=== PATIENT | male | born 1945 | race Caucasian/White ===

== ENCOUNTER 2016-09-18 07:15 | Inpatient (IN) | payer MEDICARE, BC ==
[2016-09-18] VITALS (8 sets, daily range): BP systolic 157–173; BP diastolic 85–98; PULSE 46–64; RESP 16–18; TEMP 97.6–98.2; O2SAT 98–99
[~2016-09-18] VITALS: Ht 180.3 cm; Wt 110.0 kg
[2016-09-18] MEDS ORDERED: OMEP20TA PO (07:44)
[2016-09-18] MEDS ORDERED: AVOD0.5C PO (07:44)
[2016-09-18] MEDS ORDERED: FELO10TA PO (07:44)
[2016-09-18] MEDS ORDERED: LUTE6CAP2 PO (07:44)
[2016-09-18] MEDS ORDERED: ATEN50TA PO (07:44)
[2016-09-18] MEDS ORDERED: ROSU20 PO (07:44)
[2016-09-18] MEDS ORDERED: UROX10TA3 PO (07:44)
[2016-09-18] MEDS ORDERED: LISI10TA PO (07:44)
[2016-09-18] MEDS ORDERED: ASPI81CH CHEW (07:44)
[2016-09-18] MEDS ORDERED: PLAV75TA29 PO (07:44)
[2016-09-18 07:57] LABS: AUTOMATED NEUTROPHIL # 4.4 TH/MM3 (1.8-7.7); BASOPHIL # 0.1 TH/MM3 (0-0.2); BASOPHIL % 0.8 % (0.0-2.0); EOSINOPHIL # 0.4 TH/MM3 (0-0.4); EOSINOPHIL % 5.9 % (0.0-4.0); HEMO FLAGS DIFF FINAL; LYMPH % 19.8 % (9.0-44.0); LYMPHOCYTE # 1.3 TH/MM3 (1.0-4.8); MEAN CELL VOLUME 85.5 FL (80.0-100.0); MEAN CORPUSCULAR HEMOGLOBIN 28.6 PG (27.0-34.0); MEAN CORPUSCULAR HGB CONC 33.5 % (32.0-36.0); MONO % 8.4 % (0.0-8.0); NEUT % 65.1 % (16.0-70.0); PLATELET COUNT 223 TH/MM3 (150-450); RED CELL DISTRIBUTION WIDTH 15.2 % (11.6-17.2); WHITE BLOOD COUNT 6.8 TH/MM3 (4.0-11.0)
[2016-09-18] MEDS ORDERED: ASPIRIN 81 MG CHEW TAB PO ONE (08:00)
[2016-09-18 08:07] LABS: APTT (PATIENT) 26.3 SEC (24.3-30.1); PROTHROMBIN TIME - PATIENT 11.6 SEC (9.8-11.6)
[2016-09-18 08:21] LABS: POTASSIUM 3.7 MEQ/L (3.5-5.1)
[2016-09-18] MEDS ORDERED: IOHEXOL 350 MG/ML 100 ML BTL (for Cath Lab) OTHER ONE (10:00)
[2016-09-18] MEDS ORDERED: HEPARIN-NS/PF INJ 500 ML ONE (10:05)
--- NOTE | 2016-09-18 10:13 | EKG ---
Date Performed: 09/18/2016 Time Performed: 08:08:02 PTAGE: 71 years EKG: BASELINE ARTIFACT PRESENT. Sinus bradycardia. Right bundle branch block Possible LVH with s econdary repolarization abnormality Nonspecific ST-T wave changes Abnormal ECG NO PREVIOUS TRACING DOCTOR: Hernandez Vitale Interpretating Date/Time 09/18/2016 10:12:56
[2016-09-18] MEDS ORDERED: HEPARIN SODIUM - IV 10,000 UNITS/10 ML VIAL ONE (10:47)
[2016-09-18] MEDS ORDERED: SODIUM CHLORIDE 0.9% FLUSH 10 ML FLUSH PRN (11:15)
[2016-09-18] MEDS ORDERED: BACITRACIN OINT 0.9 GM PKT TOP ONE (11:15)
[2016-09-18] MEDS ORDERED: MISC INFORMATION XX ONE (11:15)
[2016-09-18] MEDS ORDERED: METOPROLOL TARTRATE 25 MG TAB PO SCH (16:30)
[2016-09-18] MEDS ORDERED: ceFAZolin 2 GM PREMIX 50 ML IV SCH (16:30)
[2016-09-18] MEDS ORDERED: SODIUM CHLORIDE 0.9% FLUSH 10 ML FLUSH IV FLUSH PRN (16:30)
[2016-09-18] MEDS ORDERED: POTASSIUM CHLORIDE 20 MEQ CONTROLLED RELEASE TAB PO ONE (16:30)
[2016-09-18] MEDS ORDERED: CEFAZOLIN INJ 500 MG in SODIUM CHLORIDE 0.9% IRR BTL 500 ML IRRIGATION SCH (16:30)
[2016-09-18] MEDS ORDERED: CHLORHEXIDINE GLUCONATE 4% SOLN 120 ML BTL TOPICAL SCH (16:30)
[2016-09-18] MEDS ORDERED: PAPAVERINE INJ 60 MG, NITROGLYCERIN INJ 100 MCG, DILTIAZEM INJ 100 MG in SODIUM CHLORID... IRRIGATION SCH (16:30)
[2016-09-18] MEDS ORDERED: INSULIN REGULAR (IV INFUSION) 100 UNITS in SODIUM CHLORIDE 0.9% INJ 100 ML IV SCH (16:30)
--- NOTE | 2016-09-18 16:36 | PD.CAR.PN ---
CVT Progress Note Subjective/Hospital Course: sts data discussed with pt RISK SCORES About the STS Risk Calculator Procedure: CAB Only Risk of Mortality: 1.234% Morbidity or Mortality: 13.467% Long Length of Stay: 5.003% Short Length of Stay: 44.36% Permanent Stroke: 0.965% Prolonged Ventilation: 8.508% DSW Infection: 0.642% Renal Failure: 5.088% Reoperation: 4.494% Objective: Vital Signs Date Time Temp Pulse Resp B/P Pulse Ox O2 Delivery O2 Flow Rate FiO2 09/18/16 15:30 98.2 53 18 165/85 98 09/18/16 11:41 100 Room Air 09/18/16 07:39 97.9 58 18 161/92 98 Labs: Laboratory Tests Test 09/18/16 07:30 White Blood Count 6.8 TH/MM3 (4.0-11.0) Red Blood Count 4.10 MIL/MM3 (4.50-5.90) Hemoglobin 11.7 GM/DL (13.0-17.0) Hematocrit 35.0 % (39.0-51.0) Mean Corpuscular Volume 85.5 FL (80.0-100.0) Mean Corpuscular Hemoglobin 28.6 PG (27.0-34.0) Mean Corpuscular Hemoglobin 33.5 % Concent (32.0-36.0) Red Cell Distribution Width 15.2 % (11.6-17.2) Platelet Count 223 TH/MM3 (150-450) Mean Platelet Volume 9.1 FL (7.0-11.0) Neutrophils (%) (Auto) 65.1 % (16.0-70.0) Lymphocytes (%) (Auto) 19.8 % (9.0-44.0) Monocytes (%) (Auto) 8.4 % (0.0-8.0) Eosinophils (%) (Auto) 5.9 % (0.0-4.0) Basophils (%) (Auto) 0.8 % (0.0-2.0) Neutrophils # (Auto) 4.4 TH/MM3 (1.8-7.7) Lymphocytes # (Auto) 1.3 TH/MM3 (1.0-4.8) Monocytes # (Auto) 0.6 TH/MM3 (0-0.9) Eosinophils # (Auto) 0.4 TH/MM3 (0-0.4) Basophils # (Auto) 0.1 TH/MM3 (0-0.2) CBC Comment DIFF FINAL Differential Comment Prothrombin Time 11.6 SEC (9.8-11.6) Prothromb Time International 1.0 RATIO Ratio Activated Partial 26.3 SEC Thromboplast Time (24.3-30.1) Sodium Level 143 MEQ/L (136-145) Potassium Level 3.7 MEQ/L (3.5-5.1) Chloride Level 107 MEQ/L (98-107) Carbon Dioxide Level 28.0 MEQ/L (21.0-32.0) Anion Gap 8 MEQ/L (5-15) Blood Urea Nitrogen 18 MG/DL (7-18) Creatinine 1.25 MG/DL (0.60-1.30) Estimat Glomerular Filtration 57 ML/MIN (>89) Rate Random Glucose 111 MG/DL (74-106) Calcium Level 9.4 MG/DL (8.5-10.1) Result Diagram: 09/18/16 0730 09/18/16 0730 Jailene Urena Sep 18, 2016 16:36
--- NOTE | 2016-09-18 17:08 | RADRPT ---
EXAM DATE/TIME: 09/18/2016 16:57 [facility] COMPARISON: No previous studies available for comparison. INDICATIONS : Evaluate for pneumonia, pneumothorax or communicable disease. Pre-op, CABG. MEDICAL HISTORY : None. SURGICAL HISTORY : None. ENCOUNTER: Initial ACUITY: 1 day PAIN SCORE: 0/10 LOCATION: Bilateral chest FINDINGS: The cardiac silhouette is enlarged in transverse diameter. The lungs are free of acute parenchymal op acity. No effusions are identified. There is prominence of the aortic knob is with calcification vishnu acteristic of atherosclerotic vascular disease. There is mild multilevel degenerative change through out the spine. CONCLUSION: 1. Cardiomegaly. No acute pulmonary disease. Shorty Gillespie MD on September 18, 2016 at 17:06 Board Certified Radiologist. This report was verified electronically.
--- NOTE | 2016-09-18 20:02 | RADRPT ---
EXAM DATE/TIME: 09/18/2016 18:51 [facility] COMPARISON: No previous studies available for comparison. INDICATIONS : Preop cardiac surgery. MEDICAL HISTORY : Hypertension. Cardiac disorders. Anticoagulant therapy, Plavix. SURGICAL HISTORY : Cardiac cath. ENCOUNTER: Initial ACUITY: 1 day PAIN SCORE: 0/10 LOCATION: Bilateral neck PEAK SYSTOLIC VELOCITIES (cm/sec): ICA/CCA RATIO: Right: 1.7 Left: 4.2 ICA: Right: 108 Left: 200 CCA: Right: 65 Left: 48 ECA: Right: 86 Left: 116 VERTEBRAL: Right: 95 antegrade Left: 92 antegrade Elevated flow velocities and ICA/CCA ratios have been found to correlate with increased degrees of vessel stenosis, calculated as percentage of diameter relative to a normal segment of distal ICA/CCA FINDINGS: RIGHT CAROTID: There is mild plaque at the right carotid bulb region. No significant stenosis is visualized. The wa veforms are within normal limits. LEFT CAROTID: There is a least moderate plaque at the left carotid bulb region with elevated peak systolic velocity in the left internal carotid artery and a significantly elevated ICA to CCA ratio. VERTEBRAL ARTERIES: Antegrade flow is seen in both vertebral arteries. MISCELLANEOUS: None. CONCLUSION: Suspected at least moderate stenosis at the left internal carotid artery. Mark Quinn MD on September 18, 2016 at 19:59 Board Certified Radiologist. This report was verified electronically.
--- NOTE | 2016-09-18 20:03 | RADRPT ---
EXAM DATE/TIME: 09/18/2016 19:08 [facility] COMPARISON: No previous studies available for comparison. INDICATIONS : Preop cardiac surgery. MEDICAL HISTORY : Hypertension. Cardiac disorders. Anticoagulant therapy, Plavix. SURGICAL HISTORY : Cardiac cath. ENCOUNTER: Initial ACUITY: 1 day PAIN SCORE: 0/10 LOCATION: Bilateral leg. TECHNIQUE: Venous ultrasound of the left and right leg was performed from the inguinal ligament to the proximal calf. Real-time, color Doppler and spectral tracing, compression and augmentation techniques were us ed. FINDINGS: RIGHT LEG: There is normal compressibility of the deep venous system from the inguinal region to the proximal ca lf. No echogenic clot is seen in the lumen of the common femoral, femoral, popliteal, and posterior tibial veins. There is a normal response of the venous system to proximal and distal augmentation an d respiration. LEFT LEG: There is normal compressibility of the deep venous system from the inguinal region to the proximal ca lf. No echogenic clot is seen in the lumen of the common femoral, femoral, popliteal, and posterior tibial veins. There is a normal response of the venous system to proximal and distal augmentation an d respiration. CONCLUSION: No DVT. Mark Quinn MD on September 18, 2016 at 20:01 Board Certified Radiologist. This report was verified electronically.
--- NOTE | 2016-09-18 20:04 | RADRPT ---
EXAM DATE/TIME: 09/18/2016 19:16 [facility] COMPARISON: No previous studies available for comparison. INDICATIONS : Preop cardiac surgery. MEDICAL HISTORY : Hypertension. Cardiac disorders. Anticoagulant therapy, Plavix. SURGICAL HISTORY : Cardiac cath. ENCOUNTER: Initial ACUITY: 1 day PAIN SCORE: 0/10 LOCATION: Bilateral leg. GREATER SAPHENOUS VEIN THIGH: PROXIMAL: Right 3 mm Left 5 mm MID: Right 3 mm Left 3 mm DISTAL: Right 4 mm Left 2 mm CALF: PROXIMAL: Right 1 mm Left 2 mm MID: Right 1 mm Left 1 mm DISTAL: Right 1 mm Left 1 mm FINDINGS: The venous system of the lower extremities are patent by color Doppler imaging. Measurements of the leg veins (in mm) are listed above. CONCLUSION: Venous mapping as delineated above. Mark Quinn MD on September 18, 2016 at 20:01 Board Certified Radiologist. This report was verified electronically.
[2016-09-18] MEDS: SODIUM CHLORIDE 0.9% FLUSH 10 ML FLUSH IV FLUSH SCH (21:00)
[2016-09-18] MEDS ORDERED: ATENOLOL 50 MG TAB PO ONE (21:30)
[2016-09-18] MEDS ORDERED: LISINOPRIL 10 MG TAB PO ONE (21:45)
[2016-09-18] MEDS ORDERED: HYDROCHLOROTHIAZIDE 25 MG TAB PO ONE (21:45)
[2016-09-18] MEDS: SODIUM CHLORIDE 0.9% FLUSH 10 ML FLUSH SCH (21:51)
[2016-09-19] VITALS (27 sets, daily range): BP systolic 138–162; BP diastolic 77–90; PULSE 43–62; RESP 16–18; TEMP 97.6–98; O2SAT 95–99
[2016-09-19 07:18] LABS: P2Y12 REACTION UNITS (PRU) 278 PRU (194-418)
[2016-09-19] MEDS: PROSCAR PO SCH (08:18)
[2016-09-19] MEDS: TAMSULOSIN HCL 0.4 MG CAP PO SCH (08:18)
[2016-09-19] MEDS: ATORVASTATIN 40 MG TAB PO SCH (08:18)
[2016-09-19] MEDS: ATENOLOL 50 MG TAB PO SCH (08:18)
[2016-09-19] MEDS: SODIUM CHLORIDE 0.9% FLUSH 10 ML FLUSH IV FLUSH SCH (08:19)
[2016-09-19] MEDS: LISINOPRIL 10 MG TAB PO SCH (08:19)
[2016-09-19] MEDS: ASPIRIN 81 MG CHEW TAB PO SCH (08:19)
[2016-09-19] MEDS: SODIUM CHLORIDE 0.9% FLUSH 10 ML FLUSH SCH (08:19)
[2016-09-19] MEDS: HYDROCHLOROTHIAZIDE 25 MG TAB PO SCH (08:19)
--- NOTE | 2016-09-19 15:59 | PD.CARD.PN ---
Subjective Subjective Remarks alert in nad Objective Vital Signs / I&O Vital Signs Date Time Temp Pulse Resp B/P Pulse Ox O2 Delivery O2 Flow Rate FiO2 09/19/16 15:01 50 09/19/16 15:01 98.0 54 16 150/89 95 09/19/16 14:01 50 09/19/16 13:00 50 09/19/16 12:01 52 09/19/16 11:30 98.0 58 16 152/84 96 09/19/16 11:00 48 09/19/16 10:00 48 09/19/16 09:01 56 09/19/16 08:15 98.0 60 18 138/77 98 09/19/16 08:00 54 09/19/16 07:00 48 09/19/16 06:36 50 09/19/16 05:00 46 09/19/16 04:00 43 09/19/16 03:00 56 09/19/16 02:00 50 09/19/16 01:28 97.6 62 16 156/90 99 09/19/16 01:00 50 09/19/16 00:00 50 09/18/16 23:00 50 09/18/16 22:00 64 09/18/16 21:59 62 157/96 09/18/16 21:00 56 09/18/16 20:00 52 09/18/16 20:00 97.6 51 16 173/98 99 09/18/16 19:00 46 I/O 09/18/16 09/18/16 09/18/16 09/19/16 09/19/16 09/19/16 07:00 15:00 23:00 07:00 15:00 23:00 Intake Total 240 ml 480 ml Output Total 0 ml 375 ml Balance 240 ml 105 ml Intake Oral 240 ml 480 ml Output Urine Total 0 ml 375 ml # Voids 0 # Bowel Movements 0 Laboratory GENERAL: SKIN: Warm and dry. HEAD: Normocephalic. EYES: No scleral icterus. No injection or drainage. NECK: Supple, trachea midline. No JVD or lymphadenopathy. CARDIOVASCULAR: Regular rate and rhythm without murmurs, gallops, or rubs. RESPIRATORY: Breath sounds equal bilaterally. No accessory muscle use. GASTROINTESTINAL: Abdomen soft, non-tender, nondistended. MUSCULOSKELETAL: No cyanosis, or edema. BACK: Nontender without obvious deformity. No CVA tenderness. Laboratory Tests Test 09/18/16 09/19/16 09/19/16 20:00 06:08 07:40 Nasal Screen MRSA (PCR) MRSA NOT DETECTED Platelet Function P2Y12 React 278 PRU Units Blood Type O POSITIVE O POSITIVE Antibody Screen NEGATIVE Crossmatch Leukocyte-Reduced Red Blood Cells Blood Bank Comment Assessment and Plan Problem List: (1) CAD (coronary artery disease) (2) Tobacco abuse (3) HTN (hypertension) (4) DM (diabetes mellitus) Assessment and Plan 1.) severe 3 vessel cad/dm - cabg per Dr Castelan 09/21/16 Rubén Galloway MD Sep 19, 2016 15:58
[2016-09-19 18:00] LABS: BLOOD, URINE SMALL (NEG); COMMENT (UR) CULT NOT INDICATED; CULTURE IF INDICATED CULT NOT INDICATED; GLUCOSE,URINE NEG (NEG); KETONE, URINE NEG (NEG); MUCUS URINE FEW /lpf (OCC); NITRITE,URINE NEG (NEG); PH, URINE 5.5 (5.0-8.5); SQUAMOUS EPITHELIAL CELL URINE <1 /hpf (0-5); URINE COLOR YELLOW (YELLW/STRAW)
[2016-09-20] VITALS (25 sets, daily range): BP systolic 143–198; BP diastolic 84–100; PULSE 42–66; RESP 16; TEMP 98–98.8; O2SAT 95–97
[2016-09-20] MEDS: ATENOLOL 50 MG TAB PO SCH (09:00)
[2016-09-20] MEDS: SODIUM CHLORIDE 0.9% FLUSH 10 ML FLUSH IV FLUSH SCH (09:00)
[2016-09-20] MEDS: ATORVASTATIN 40 MG TAB PO SCH (09:11)
[2016-09-20] MEDS: HYDROCHLOROTHIAZIDE 25 MG TAB PO SCH (09:12)
[2016-09-20] MEDS: LISINOPRIL 10 MG TAB PO SCH (09:12)
[2016-09-20] MEDS: ASPIRIN 81 MG CHEW TAB PO SCH (09:12)
[2016-09-20] MEDS: PROSCAR PO SCH (09:12)
[2016-09-20] MEDS: SODIUM CHLORIDE 0.9% FLUSH 10 ML FLUSH SCH (09:13)
[2016-09-20] MEDS: TAMSULOSIN HCL 0.4 MG CAP PO SCH (09:15)
--- NOTE | 2016-09-20 10:33 | PD.CAR.PN ---
CVT Progress Note Subjective/Hospital Course: 09/20 Clinically stable Requesting Off-Pump CABG since his brother was operated by [facility]. Will plan for OPCAB tomorrow am. D/w Dr. Castelan Objective: Vital Signs Date Time Temp Pulse Resp B/P Pulse Ox O2 Delivery O2 Flow Rate FiO2 09/20/16 08:00 98.8 62 16 156/90 95 09/20/16 06:00 49 09/20/16 05:52 98.2 47 16 165/86 97 09/20/16 05:00 47 09/20/16 04:00 44 09/20/16 03:00 44 09/20/16 02:00 44 09/20/16 01:00 48 09/20/16 00:00 98.0 43 16 166/86 97 09/20/16 00:00 42 09/19/16 23:00 46 09/19/16 22:00 46 09/19/16 21:00 46 09/19/16 21:00 98.0 49 16 162/88 98 09/19/16 20:00 48 09/19/16 19:00 45 09/19/16 18:00 45 09/19/16 17:00 46 09/19/16 16:00 44 09/19/16 15:01 50 09/19/16 15:01 98.0 54 16 150/89 95 09/19/16 14:01 50 09/19/16 13:00 50 09/19/16 12:01 52 09/19/16 11:30 98.0 58 16 152/84 96 09/19/16 11:00 48 Result Diagram: 09/18/1672909/18/16729 (1) CAD (coronary artery disease) (2) Tobacco abuse (3) HTN (hypertension) (4) DM (diabetes mellitus) Kaley Loera MD Sep 20, 2016 10:33
[2016-09-20 10:42] LABS: HEMOGLOBIN A1a 1.1 %; HEMOGLOBIN A1b 0.9 %; HEMOGLOBIN Ao 84.8 %; HEMOGLOBIN F 0.9 %; HEMOGLOBIN LA1C 1.6 %; HEMOGLOBIN P3 3.8 %
--- NOTE | 2016-09-20 14:17 | PD.CARD.PN ---
Subjective Subjective Remarks alert in nad Objective Vital Signs / I&O Vital Signs Date Time Temp Pulse Resp B/P Pulse Ox O2 Delivery O2 Flow Rate FiO2 09/20/16 10:00 48 09/20/16 09:00 52 09/20/16 08:00 98.8 62 16 156/90 95 09/20/16 08:00 66 09/20/16 07:00 52 09/20/16 06:00 49 09/20/16 05:52 98.2 47 16 165/86 97 09/20/16 05:00 47 09/20/16 04:00 44 09/20/16 03:00 44 09/20/16 02:00 44 09/20/16 01:00 48 09/20/16 00:00 98.0 43 16 166/86 97 09/20/16 00:00 42 09/19/16 23:00 46 09/19/16 22:00 46 09/19/16 21:00 46 09/19/16 21:00 98.0 49 16 162/88 98 09/19/16 20:00 48 09/19/16 19:00 45 09/19/16 18:00 45 09/19/16 17:00 46 09/19/16 16:00 44 09/19/16 15:01 50 09/19/16 15:01 98.0 54 16 150/89 95 I/O 09/19/16 09/19/16 09/19/16 09/20/16 09/20/16 09/20/16 07:00 15:00 23:00 07:00 15:00 23:00 Intake Total 480 ml 720 ml 620 ml Output Total 375 ml 800 ml 680 ml Balance 105 ml -80 ml -60 ml Intake Oral 480 ml 720 ml 620 ml Output Urine Total 375 ml 800 ml 680 ml Physical Exam GENERAL: SKIN: Warm and dry. HEAD: Normocephalic. EYES: No scleral icterus. No injection or drainage. NECK: Supple, trachea midline. No JVD or lymphadenopathy. CARDIOVASCULAR: Regular rate and rhythm without murmurs, gallops, or rubs. RESPIRATORY: Breath sounds equal bilaterally. No accessory muscle use. GASTROINTESTINAL: Abdomen soft, non-tender, nondistended. MUSCULOSKELETAL: No cyanosis, or edema. BACK: Nontender without obvious deformity. No CVA tenderness. Laboratory Laboratory Tests Test 09/19/16 17:00 Urine Color YELLOW Urine Turbidity CLEAR Urine pH 5.5 Urine Specific Addis 1.024 Urine Protein NEG mg/dL Urine Glucose (UA) NEG mg/dL Urine Ketones NEG mg/dL Urine Occult Blood SMALL Urine Nitrite NEG Urine Bilirubin NEG Urine Urobilinogen LESS THAN 2.0 MG/DL Urine Leukocyte Esterase NEG Urine RBC 5 /hpf Urine WBC 1 /hpf Urine Squamous Epithelial <1 /hpf Cells Urine Mucus FEW /lpf Microscopic Urinalysis Comment CULT NOT INDICATED Assessment and Plan Problem List: (1) CAD (coronary artery disease) (2) Tobacco abuse (3) HTN (hypertension) (4) DM (diabetes mellitus) Assessment and Plan 1.) severe 3 vessel cad/dm - cabg per Dr Loera 09/21/16 Rubén Galloway MD Sep 20, 2016 14:17
--- NOTE | 2016-09-20 18:53 | MR ---
cc: AMBAR LE M.D. DATE: 09/18/2016. PROCEDURES PERFORMED: Right heart catheterization, left heart catheterization, left ventriculography, coronary angiography. INDICATIONS FOR THE PROCEDURE: Coronary artery disease, diabetes mellitus, hypertension, hyperlipidemia, moderate sized in the posterior wall, inferior wall moderate sized reversal defect, posterior/inferior wall and apex. Ejection fraction of 65%. Congestive heart failure. Dyspnea on exertion. Diabetes mellitus. Moderate to severe three-vessel disease in the past. DESCRIPTION OF THE PROCEDURE IN DETAIL: The patient was brought to the cardiac catheterization laboratory and prepped and draped in the usual sterile fashion. 10 cc of 1% lidocaine was used to locally anesthetize the right common femoral artery. A 4-Yoruba sheath was subsequently placed in the right common femoral artery. A 5-Yoruba sheath was placed in the right common femoral vein. Right heart catheterization was performed first. I was not able to wedge the balloon to the wedge position; therefore, PA pressure was obtained first. The PA pressure was 32/15/24. RV pressure was 38/13/18. RA pressure was 14/11/10. The SA saturation on room air was 98.2%. The PA saturation on room air was 66.9%. RA saturation on room air was 72.2%. Cardiac output by Marylou is 6.0 liters per minute. Cardiac index by Marylou is 2.7 liters per minute per meter squared. Left heart catheterization was then performed. I needed to use the 4-Yoruba JR-4 diagnostic catheter and the 0.33 wire to steer past the right common iliac artery and into the aorta due to vessel tortuosity. Thereafter all catheter exchanges were done over a long 0.035 J-tip wire. I was not able to cross the aortic valve with an 0.035 J-tip wire. The valve appeared to be calcified fluoroscopically. I imaged the right coronary artery first. This was a small nondominant vessel that was subtotally occluded in the mid segment with bridging collaterals to a small 0.5 mm vessel distal to the mid segment. The proximal segment had a long 70% stenosis. I was able to cross the aortic valve with an 0.03 Terumo straight tipped wire and placed a JR-4 diagnostic catheter into the left ventricle. LV pressures were 210 / 19 - 22, ejection fraction 65%. The pullback gradient was approximately 10 mmHg, going from 195 to 190, so approximately 5 mm. The left main coronary artery is calcified fluoroscopically and has no significant disease angiographically. The left circumflex vessel has a subtotal occlusion proximally. It does appear to be RADHA III flow into the remainder of that left circumflex vessel. It is a very tortuous vessel. The first obtuse marginal vessel is small to medium-sized vessel with perhaps a proximal 70% stenosis. It is difficult to image this vessel. The patient is obese and I could only really image it in the caudal view. This vessel does bifurcate and I would estimate it at a 2.5 mm vessel proximally tapering to a 2.0 mm vessel distally. The left anterior descending fibrocalcific fluoroscopically. It is tortuous in proximal segment with a long 80% stenosis that I can best appreciate in the ALDRICH cranial view. There are two small 0.5 mm diagonal vessels coming off this segment of the LAD. The third diagonal vessel is a small vessel, probably 1.0 to 1.5 mm in diameter with an ostial 50% stenosis. CONCLUSIONS: 1. Severe three-vessel coronary artery disease in a right dominant system. 2. Questionable diabetes. The patient claims he does not have diabetes but he takes metformin. 3. He has normal left ventricular systolic function with ejection fraction of 65%. 4. I have recommended CABG to the patient. The patient is undecided. I have explained to him that percutaneous coronary intervention would be high risk due to the location of the left circumflex vessel stenosis; however, it does appear to be a 90-degree angle off the left main, which would suggest the possibility of having the stent not protruding into the left main or ostial left anterior descending. Again, a high risk lesion to intervene on. Again, the patient is undecided. He requests to go back to his room and think about his options. 5. I am going to get a consult with Dr. Jennifer Castelan. I have already discussed the case with him on the phone. 6. Otherwise, he will continue medical management of coronary artery disease and cardiac risk factor modification. 7. I do not think the patient should be discharged given the high-grade lesions and high-risk nature and the amount of jeopardized myocardium involved, prior to revascularization. MD RACIEL Oquendo/TAMAR /11:10 AM /6:38 PM
--- NOTE | 2016-09-20 22:43 | EKG ---
Date Performed: 09/19/2016 Time Performed: 17:15:46 PTAGE: 71 years EKG: Sinus bradycardia and junctional rhythm Right bundle branch block Inferior infarct - age un determined LVH with secondary repolarization abnormality Diffuse ST-T changes Abnormal ECGPREVIOUS TR ACING : 09/18/2016 08.08 Compared to the previous tracing ST-T changes more prominent DOCTOR: Madi Kenny Interpretating Date/Time 09/20/2016 22:42:36
[2016-09-20] MEDS ORDERED: NITROGLYCERIN-DEXTROSE 5% 250 ML for hypertension IV SCH (23:45)
[2016-09-20] MEDS ORDERED: ALPRAZolam 0.25 MG TAB PO PRN (23:45)
[2016-09-21] VITALS (15 sets, daily range): BP systolic 99–138; BP diastolic 59–81; PULSE 47–92; RESP 16–20; TEMP 97.8–98.2; O2SAT 93–99
[2016-09-21] MEDS ORDERED: SODIUM CHLORID 0.9% 500 ML IV PRN (01:00)
[2016-09-21] MEDS ORDERED: LACTATED RINGER'S 1000 ML IV PRN (01:00)
[2016-09-21] MEDS ORDERED: POVIDONE IODINE 5% (ANTISEPSIS KIT) 4 APPLICATIONS EACH NARE PRN (01:00)
[2016-09-21] MEDS ORDERED: CHLORHEXIDINE GLUCONATE 2 % 1 PACK (2 CLOTHS) TOPICAL PRN (01:00)
[2016-09-21] MEDS ORDERED: INSULIN HUMAN REGULAR 1,000 UNITS/10 ML VIAL SQ PRN (01:00)
[2016-09-21] MEDS ORDERED: METOPROLOL TARTRATE 5 MG/5 ML VIAL IV PUSH ONE (05:00)
[2016-09-21] MEDS ORDERED: LIDOCAINE HCL 2% 100 MG/5 ML SYRINGE IV PUSH ONE (05:00)
[2016-09-21] MEDS ORDERED: PROPOFOL 1000 MG/100 ML INJ 100 ML IV ONE (05:00)
[2016-09-21] MEDS ORDERED: VECURONIUM BROMIDE 10 MG VIAL IV ONE (05:00)
[2016-09-21] MEDS ORDERED: ceFAZolin INJ 1,000 MG VIAL IV ONE ×2 (05:00→12:08)
[2016-09-21] MEDS ORDERED: ARTIFICIAL TEARS OPTH OINT 3.5 APPLIC/3.5 GM TUBO ONE (05:00)
[2016-09-21] MEDS ORDERED: ceFAZolin 2 GM PREMIX 50 ML IV ONE (05:00)
[2016-09-21] MEDS ORDERED: MAGNESIUM SULFATE 1000 MG/2 ML VIAL (PED) IV ONE (05:00)
[2016-09-21] MEDS ORDERED: PHENYLEPHRINE HCL 10 MG/ML VIAL IV ONE (05:00)
[2016-09-21] MEDS ORDERED: HEPARIN SODIUM - SQ 10,000 UNITS/ML VIAL ONE (06:51)
[2016-09-21] MEDS ORDERED: ceFAZolin 2 GM PREMIX 50 ML ONE (06:51)
[2016-09-21] MEDS ORDERED: VANCOMYCIN HCL 1000 MG VIAL ONE (06:51)
[2016-09-21] MEDS ORDERED: fentaNYL CITRATE 1000 MCG/20 ML VIAL ONE (06:55)
[2016-09-21] MEDS ORDERED: MIDAZOLAM HCL 5 MG/5 ML VIAL ONE ×2 (06:55)
[2016-09-21] MEDS: PROSCAR PO SCH (09:00)
[2016-09-21] MEDS: ATORVASTATIN 40 MG TAB PO SCH (09:00)
[2016-09-21] MEDS: HYDROCHLOROTHIAZIDE 25 MG TAB PO SCH (09:00)
[2016-09-21] MEDS: ATENOLOL 50 MG TAB PO SCH (09:00)
[2016-09-21] MEDS: TAMSULOSIN HCL 0.4 MG CAP PO SCH (09:00)
[2016-09-21] MEDS: LISINOPRIL 10 MG TAB PO SCH (09:00)
[2016-09-21] MEDS ORDERED: PROTAMINE SULFATE 250 MG/25 ML VIAL IV ONE (09:04)
--- NOTE | 2016-09-21 09:05 | MB ---
cc: JENNIFER CASTELAN DATE OF CONSULTATION 09/18/16 DATE OF 1945 HISTORY OF PRESENT ILLNESS A 71-year-old male who has been followed by Dr. Galloway for unstable angina. He had a positive stress test a couple of weeks ago, underwent cardiac catheterization which showed no left main disease, EF of 60%, proximal LAD 80%, mid distal LAD 80%. The circ was 95%. The OM 80% and the RCA 95%. We were asked to see the patient in regards to cardiovascular surgery. PAST MEDICAL HISTORY The patient's past medical history includes coronary artery disease, non-rheumatic mitral valve insufficiency, non-rheumatic aortic valve insufficiency. Tobacco abuse. He quit 1 month ago. Diabetes mellitus type 2. Essential hypertension, mixed hyperlipidemia, peripheral vascular disease, CHF, dyspnea, unstable angina. ALLERGIES No known allergies. MEDICATIONS Home medications include: 1. Aspirin 81 milligrams. 2. Atenolol 50 milligrams. 3. Avodart 0.5 daily. 4. Crestor 20 p.o. daily. 5. Felodipine 10 milligrams daily. 6. Lisinopril/hydrochlorothiazide 10/12.5 p.o. daily. 7. Lutin. 8. Omeprazole 40 milligrams. 9. Plavix 75 milligrams. 10. Uroxatral 10 milligrams p.o. daily. FAMILY HISTORY Father at age 53 with an TX. Mother complications of CHF at 83. SOCIAL HISTORY The patient , two children. Retired teacher. Lives with his significant other. Quit smoking a month ago, has smoked for 30-40 years, one pack per day. Occasional alcohol. REVIEW OF SYSTEMS GENERAL: In general no night sweats, fever, heat, cold intolerance. SKIN: No psoriasis, itching or hives. HEENT: No blurred vision, hearing loss. RESPIRATORY: Occasional shortness of breath. CARDIOVASCULAR: As above in the HPI. GASTROINTESTINAL: No diarrhea, vomiting. GENITOURINARY: No burning frequency, urgency. STAIN REMOVER: No history of TIA, CVA, seizure disorder. ENDOCRINOLOGY: Positive for diabetes. PHYSICAL EXAMINATION VITAL SIGNS: On exam blood pressure 160/80, heart rate of 53, afebrile. GENERAL: Patient is awake, alert in no acute distress. HEENT: Head is normocephalic, atraumatic. Pupils equal and reactive. Oral mucosa pink, moist. NECK: Supple. No JVD. Heart sounds S1-S2 with a grade 2/6 diastolic murmur best noted at the left sternal border. LUNGS: Clear to auscultation. No wheezes, rales or rhonchi. ABDOMEN: Soft, nontender. No masses or organomegaly. EXTREMITIES: No cyanosis, clubbing or edema. LABORATORY FINDINGS Shows hemoglobin 11, hematocrit 35, white cell count of 6.8, platelet count of 223, sodium 143, potassium 3.7, BUN of 18, creatinine 1.25, INR 1.0. Further workup is pending including carotid ultrasound, chest x-ray, vein mapping. IMPRESSION This is a 71-year-old male with multivessel disease, EF of 60%. The cardiac films have been reviewed by Dr. Jennifer Castelan. Procedures, alternatives and risks have been discussed with the patient. PLAN The plan will be for coronary artery bypass grafting on WednesdaySeptember 21. In the meantime, we will check platelet inhibition testing on Wednesday morning and if less than 200 this will be notified to Dr. Jennifer Castelan and may need to hold an additional day. In the meantime, the patient's ___ status will be discussed with the patient, documented in the electronic record and further plan per Dr. Castelan. Dictated by KIM Lobo MD ROGER Stephens/CARI /4:47 PM /9:03 AM
[2016-09-21] MEDS: DOBUTamine PREMIX DRIP 250 ML IV SCH (12:12)
[2016-09-21] MEDS ORDERED: LACTATED RINGER'S 1000 ML INJ 500 ML IV PRN (12:12)
[2016-09-21] MEDS ORDERED: ONDANSETRON HCL 4 MG/2 ML VIAL IV PUSH PRN (12:15)
[2016-09-21] MEDS ORDERED: METOPROLOL TARTRATE 5 MG/5 ML VIAL IV PUSH PRN (12:15)
[2016-09-21] MEDS ORDERED: PHENYLEPHRINE INJ 40 MG in DEXTROSE 5% IN WATE 500 ML INJ 496 ML IV SCH ×2 (12:15)
[2016-09-21] MEDS ORDERED: CLEVIDIPINE INJ 50 ML IV SCH (12:15)
[2016-09-21] MEDS ORDERED: NITROGLYCERIN-DEXTROSE INJ 250 ML IV SCH (12:15)
[2016-09-21] MEDS ORDERED: DEXMEDETOMIDINE INJ 200 MCG in SODIUM CHLORIDE 0.9% INJ 50 ML IV SCH (12:15)
[2016-09-21] MEDS ORDERED: POTASSIUM CHLOR 20 MEQ PREMIX 100 ML IV PRN ×2 (12:15)
[2016-09-21] MEDS ORDERED: SODIUM CHLORIDE 0.9% FLUSH 10 ML FLUSH IV FLUSH PRN (12:15)
[2016-09-21] MEDS ORDERED: Post-op Orders (for Pharmacy) MISC OTHER ONE (12:15)
[2016-09-21] MEDS ORDERED: ALBUMIN HUMAN 5% 12.5 GM/250 ML BOTTLE IV PRN (12:15)
[2016-09-21] MEDS ORDERED: ACETAMINOPHEN 325 MG TAB PO PRN (12:15)
[2016-09-21] MEDS ORDERED: CALCIUM CHLORIDE 10% 1 GRAM/10 ML VIAL IV PRN (12:15)
[2016-09-21] MEDS ORDERED: CALCIUM CHLORIDE INJ 1 GM in SODIUM CHLORIDE 0.9% INJ 100 ML IV PRN (12:15)
[2016-09-21] MEDS ORDERED: hydrALAZINE HCL 20 MG/ML VIAL IV PRN (12:15)
[2016-09-21] MEDS ORDERED: DEXTROSE 50% IN WATER 50 ML VIAL(D50) IV PUSH PRN (12:15)
[2016-09-21] MEDS ORDERED: MORPHINE SULFATE 4 MG/ML INJ IV PRN (12:15)
[2016-09-21] MEDS ORDERED: MAGNESIUM SULFATE INJ 2 GM in SODIUM CHLORIDE 0.9% INJ 100 ML IV PRN ×4 (12:15)
[2016-09-21] MEDS ORDERED: DOPamine INJ PREMIX 500 ML IV SCH (12:15)
[2016-09-21] MEDS ORDERED: EPINEPHrine (1:1000) INJ 4 MG in DEXTROSE 5% IN WATER INJ 246 ML IV SCH ×2 (12:15)
[2016-09-21] MEDS ORDERED: MEPERIDINE HCL 25 MG/ML VIAL IV PRN (12:15)
[2016-09-21] MEDS ORDERED: POTASSIUM CHLORIDE 20 MEQ CONTROLLED RELEASE TAB PO PRN ×2 (12:15)
[2016-09-21] MEDS ORDERED: ACETAMINOPHEN 650 MG SUPP RECTAL PRN (12:15)
--- NOTE | 2016-09-21 12:20 | PD.OP ---
cc: Rubén Galloway MD; Kaley Loera MD Operative Report Date of Surgery: September 21, 2016 Preoperative Diagnosis: Postoperative Diagnosis: Procedure: 1. Urgent Off-pump Coronary Artery Bypass Grafting x 4 with left internal mammary artery (ACOSTA) to left anterior descending (LAD), reverse saphenous vein graft to the OM1, reverse saphenous vein graft to the RCA, reverse saphenous vein graft to the Diagonal 1 2.Right Leg Endoscopic Vein [place] 3. Intraoperative Vein Mapping. . Surgeon: Kaley Loera Air And Water Tester(s): Shelby Flores Operation and Findings: PREPROCEDURE DIAGNOSES 1. Severe Multi Vessel Coronary Artery Disease. 2. Acute Myocardial Infarction 3. Acute Renal Insufficiency POSTPROCEDURE DIAGNOSES Same SURGICAL PROCEDURE 1. Urgent Off-pump Coronary Artery Bypass Grafting x 4 with left internal mammary artery (ACOSTA) to left anterior descending (LAD), reverse saphenous vein graft to the OM1, reverse saphenous vein graft to the RCA, reverse saphenous vein graft to the Diagonal 1 2.Right Leg Endoscopic Vein [place] 3. Intraoperative Vein Mapping. SURGEON Kaley Loera MD SALES AND LEASING CONSULTANT DIPTI Martel ANESTHESIA General endotracheal CREDIT UNION FIELD EXAMINER Torres Chisholm, ZULLY Borden MD PREPARATION ChloraPrep. COUNTS Needle, sponge, and instrument counts were correct. DRAINS Two 32-Macedonian mediastinal tubes. COMPLICATIONS None. INDICATIONS FOR PROCEDURE The patient is a 71-year-old presenting with chest pain and NSTEMI. Patient was noted to have multi-vessel coronary artery disease. The patient is being brought to the operating room for surgical revascularization therapy. PROCEDURE Patient was brought to the operating room and placed supine on the OR table. Following the induction of adequate general endotracheal anesthesia and placement of appropriate monitoring devices, intraoperative vein mapping was performed which revealed suitable-caliber conduit in bilateral lower extremities. The patient was then prepped and draped in standard sterile fashion. Next, 2500 units of intravenous heparin was given. The right greater saphenous vein was harvested endoscopically. This appeared to be a useable- caliber conduit. Simultaneously, a median sternotomy was performed and the left internal mammary artery dissected free off the posterior sternal table. The patient was systemically heparinized and anticoagulation monitored by serial ACT measurements. The internal mammary artery had excellent pulsatile flow in it and was a good-caliber conduit. The pericardium was then divided in the midline, the cradle created and targets analyzed. At this point, all anastomoses were performed in a beating-heart fashion using the Maquet stabilizing system with intracoronary shunts. The left internal mammary artery was anastomosed to the distal LAD (2.0 mm) in an end-to-side fashion using 7-0 Prolene. Segment of saphenous vein graft was then anastomosed to the OM1 (1.75 mm) in an end-to-side fashion using 7-0 Prolene. The next segment was anastomosed to the D1 (1.5 mm) in an end-to-side fashion using a running 7-0 Prolene. The final segment of saphenous vein graft was then anastomosed to the RCA (1 mm) in an end-to-side fashion using 7-0 Prolene. The proximal anastomoses were then constructed to the ascending aorta in a running manner using 6-0 Prolene. All anastomotic sites were inspected and appeared to be hemostatic and patent. Protamine solution was given. Strict hemostasis was assured. The closure was undertaken. 2 chest tubes were placed. The pericardium was reapproximated in the midline. The sternum was approximated using sternal wires. The muscular and fascial layer were then closed in 3 layers. The endoscopic vein harvest site was closed in 2 layers. The patient tolerated the procedure well and was transferred to CVICU in stable condition. Kaley Loera MD September 21, 2016 12:20
--- NOTE | 2016-09-21 13:10 | RADRPT ---
EXAM DATE/TIME: 09/21/2016 12:42 [facility] COMPARISON: No previous studies available for comparison. INDICATIONS : Post op CABG. MEDICAL HISTORY : Hypertension. SURGICAL HISTORY : Cardiac cath. ENCOUNTER: Initial ACUITY: 1 day PAIN SCORE: Non-responsive. LOCATION: Bilateral chest FINDINGS: A single view of the chest demonstrates recent CABG. Mediastinal chest tube and left-sided chest tube s are seen. No pneumothorax. Endotracheal tube with tip 5 cm above the sho. Nasogastric tube with tip just distal to the GE junction. Right jugular central line with tip in SVC. Osseous structures a re intact. CONCLUSION: Status post CABG. Support tubes and lines as described above. Florian Bob MD on September 21, 2016 at 13:06 Board Certified Radiologist. This report was verified electronically.
[2016-09-21] MEDS: ACETAMINOPHEN 1000 MG/100 ML VIAL IV SCH ×2 (13:26→20:00)
[2016-09-21] MEDS: POTASSIUM CHLOR 20 MEQ PREMIX 100 ML IV PRN ×3 (13:27→22:39)
[2016-09-21] MEDS ORDERED: INSULIN REGULAR (IV INFUSION) 100 UNITS in SODIUM CHLORIDE 0.9% INJ 99 ML IV SCH (13:30)
[2016-09-21] MEDS ORDERED: KETOROLAC TROMETHAMINE 30 MG/ML (IVP) VIAL IV PUSH ONE (16:45)
[2016-09-21] MEDS: ceFAZolin 2 GM PREMIX 50 ML IV SCH (17:31)
[2016-09-21] MEDS: ACETAMINOPHEN/HYDROcodone 325 MG/5 MG TAB PO PRN ×2 (20:11→23:29)
[2016-09-21] MEDS: AMIODARONE 200 MG TAB PO SCH (20:12)
[2016-09-21] MEDS: SODIUM CHLORIDE 0.9% FLUSH 10 ML FLUSH IV FLUSH SCH (20:12)
[2016-09-22] VITALS (20 sets, daily range): BP systolic 113–138; BP diastolic 57–82; PULSE 74–119; RESP 16–18; TEMP 98.4–99.7; O2SAT 86–99
[2016-09-22] MEDS: ACETAMINOPHEN 1000 MG/100 ML VIAL IV SCH ×2 (01:54→08:00)
[2016-09-22] MEDS: ceFAZolin 2 GM PREMIX 50 ML IV SCH ×3 (02:28→17:43)
[2016-09-22] MEDS: ACETAMINOPHEN/HYDROcodone 325 MG/5 MG TAB PO PRN ×2 (04:01→08:27)
[2016-09-22] MEDS: DOBUTamine PREMIX DRIP 250 ML IV SCH (04:01)
[2016-09-22 05:21] LABS: HEMATOCRIT 25.4 % (39.0-51.0); MEAN CORPUSCULAR HGB CONC 33.4 % (32.0-36.0); PLATELET COUNT 162 TH/MM3 (150-450); RED BLOOD COUNT 2.92 MIL/MM3 (4.50-5.90); RED CELL DISTRIBUTION WIDTH 15.2 % (11.6-17.2); REVIEW FLAG FINAL; WHITE BLOOD COUNT 10.9 TH/MM3 (4.0-11.0)
--- NOTE | 2016-09-22 05:31 | RADRPT ---
EXAM DATE/TIME: 09/22/2016 03:57 [facility] COMPARISON: CHEST SINGLE AP, September 21, 2016, 12:42. INDICATIONS : Shortness of breath. MEDICAL HISTORY : None. SURGICAL HISTORY : None. ENCOUNTER: Subsequent ACUITY: 4 - 6 days PAIN SCORE: 0/10 LOCATION: Bilateral chest FINDINGS: The cardiac silhouette is normal in transverse diameter. Median sternotomy wires are present. A right sided internal jugular vein catheter is in place without pneumothorax with its tip in the superior v chela cava. There is bilateral lower lobe atelectasis versus pneumonia left greater than right. Small left effusion is present CONCLUSION: 1. Worsening bibasilar atelectasis left greater than right. 2. Small effusion on the left which is new when compared with the prior study Shorty Gillespie MD on September 22, 2016 at 5:28 Board Certified Radiologist. This report was verified electronically.
[2016-09-22 05:52] LABS: BICARBONATE 24.3 MEQ/L (21.0-32.0); MAGNESIUM 2.3 MG/DL (1.5-2.5); POTASSIUM 3.8 MEQ/L (3.5-5.1)
[2016-09-22] MEDS: PANTOPRAZOLE SOD 40 MG DELAYED RELEASE TAB PO SCH (06:27)
[2016-09-22] MEDS: POTASSIUM CHLOR 20 MEQ PREMIX 100 ML IV PRN (06:28)
--- NOTE | 2016-09-22 07:51 | EKG ---
Date Performed: 09/22/2016 Time Performed: 05:06:52 PTAGE: 71 years EKG: Sinus rhythm Right bundle branch block Abnormal ECG PREVIOUS TRACING : 09/19/2016 17.15 Compared to previous tracing, heart rate has increased, T w ave inversion in V3-V6, AVF has resolved. DOCTOR: Yaakov Dowell Interpretating Date/Time 09/22/2016 07:51:03
[2016-09-22] MEDS ORDERED: SOD PHOSPHATE/SOD BIPHOSPHATE (ADULT) ENEMA 133ML RECTAL PRN (08:45)
[2016-09-22] MEDS ORDERED: FUROSEMIDE 40 MG/4 ML VIAL IV PUSH ONE (08:45)
[2016-09-22] MEDS ORDERED: DEXTROSE 50% IN WATER 50 ML VIAL(D50) IV PRN (08:45)
[2016-09-22] MEDS ORDERED: INSULIN DETEMIR 100 UNITS/ML VIAL SQ ONE (08:45)
[2016-09-22] MEDS ORDERED: BISACODYL 10 MG SUPP RECTAL PRN (08:45)
[2016-09-22] MEDS ORDERED: POTASSIUM CHLORIDE 20 MEQ CONTROLLED RELEASE TAB PO ONE (08:45)
[2016-09-22] MEDS ORDERED: GLUCAGON 1 MG/ML VIAL OTHER PRN (08:45)
[2016-09-22] MEDS ORDERED: PILL SPLITTER OTHER PRN (09:00)
[2016-09-22] MEDS: MULTIVITAMINS/MINERALS THERAPEUTIC TAB PO SCH (09:00)
[2016-09-22] MEDS: DOCUSATE SODIUM 100 MG CAP PO SCH ×3 (09:00→21:32)
[2016-09-22] MEDS: MAGNESIUM HYDROXIDE SUSP 30 ML CUP PO SCH (10:01)
[2016-09-22] MEDS: AMIODARONE 200 MG TAB PO SCH ×2 (10:01→21:32)
[2016-09-22] MEDS: ATORVASTATIN 40 MG TAB PO SCH (10:02)
[2016-09-22] MEDS: CLOPIDOGREL 75 MG TAB PO SCH (10:02)
[2016-09-22] MEDS: METOPROLOL TARTRATE 25 MG TAB PO SCH ×2 (10:02→21:32)
[2016-09-22] MEDS: ASPIRIN 81 MG CHEW TAB PO SCH (10:02)
[2016-09-22] MEDS: TAMSULOSIN HCL 0.4 MG CAP PO SCH (10:03)
[2016-09-22] MEDS: PROSCAR PO SCH (10:03)
[2016-09-22] MEDS: SODIUM CHLORIDE 0.9% FLUSH 10 ML FLUSH IV FLUSH SCH ×2 (10:16→21:33)
[2016-09-22] MEDS: INSULIN ASPART SUPPLEMENTAL SCALE SQ SCH ×4 (10:40→21:51)
[2016-09-22] MEDS: oxyCODONE/ACETAMINOPHEN 5 MG/325 MG TAB PO PRN ×3 (12:55→21:32)
--- NOTE | 2016-09-22 14:24 | HHI.FF ---
Face to Face Verification Diagnosis: (1) CAD (coronary artery disease) (2) Tobacco abuse (3) HTN (hypertension) (4) DM (diabetes mellitus) (5) S/P CABG x 4 Home Health Nursing Order: Signs/symptoms of disease process Wound care and dressing changes Nursing assessment with vital signs Instructions: Heart and Vascular Surgery patients *Special attention to sternal dressing Mandatory frequency Assess and evaluation, 4 days in a row The next week 3X week 2 times a week for 4 weeks 1 time a week for 5 weeks Schedule Heart and Vascular patients for full 60 day certification period Initial visit Review Open Heart Surgery Discharge Instructions (Sternal precautions, Activity, Elastic hose, Incision care, Driving, Incentive spirometry, Smoking, [place], Work and other) Need Betadine to paint incision Medication reconciliation Importance of follow up care/ check on appointments Make calendar record temperature daily When to call [facility] nurse, review instructions, phone list Incentive Spirometry, demonstration Visit 1- Begin discharge instruction for patient family and/ or caregiver using teach back method- Signs and symptoms of infection Disease characteristics Medicines and side effects Foods and nutrition/ appetite Infection control/ hand washing/ hygiene Visit 2- Continue teaching Discharge instructions- include additional information on smoking cessation , sternal dressing (sternal vac) Visit 3- Continue teaching- Cough and deep breathing, incision monitoring. Choose my plate Visit 4- Continue teaching- Discuss limitations Discuss how they are feeling Discuss progress toward goals Remaining visits- continue teaching and monitoring PREVENA Single Use Negative Wound Therapy System Caregiver Instruction Sheet 1. A Prevena dressing system was applied to the chest incision during surgery , to promote wound healing. It works via a suction device (negative pressure wound therapy) to remove low to moderate levels of exudate (drainage) and infectious materials. We recommend that the device stay in place for up to seven days, from day of surgery. 2. Day of Surgery_09/21/16 Day of Removal ____09/28/16 3. The dressing should only be removed by a health home care nurse. Please arrange removal of device to coincide with Home Health visit and or with Nursing staff at Rehab 4. If skin reddening or irritation of skin occurs, or excessive drainage, please notify the Cardiovascular Surgeons office at [phone]. 5. Light showering is permissible; however the pump should be disconnected and placed in safe location, where it will not get wet. The dressing should not be exposed to direct spray or submerged in water. No bath tub / shower only. Ensure the end of the tubing attached to the dressing is facing down so that water does not enter the top of the tube. 6. To remove Prevena dressing: press purple button to turn off device / remove the suction. Then disconnect the tubing from the pump. The fixation strips should be stretched away from the skin and the dressing lifted at one corner and peeled back until it has been fully removed. 7. After removal, it is ok to shower daily using liquid dial soap and clean wash cloth, rinse and pat dry, and leave incision open to air dry. For any concerns regarding Prevena dressing, and or wounds, please contact Bella Chan, patient navigator at [phone] or notify the Cardiovascular Surgeons office at [phone]. Incentive spirometry Q1 hr x 10, while awake, also use acapella device hourly whole awake Sternal Breast Bone Precautions: NO pushing or pulling, ( pt must use sternal pillow to support chest with all activities and with coughing ( takes up to 3 months breast bone to heal ) Daily incision care: ok to shower daily, no tub bath. Wash all incisions with liquid dial soap, clean wash cloth to each site, rinse and pat dry. Observe for any signs of infection, such as drainage which is dark yellow, moralez, green or foul smelling. Immediately report to the surgeon any drainage from the chest incision, or legs, and for any abnormal drainage from the chest tube sites. Notify surgeon if any temp >101.5 degrees F. When specialty dressing removed/ or if you do not have one, continue to shower daily as above, then rinse and pat incision dry and paint with betadine daily x 5 days. Allow steri strips to fall off if you have any. Avoid lotions, creams, salves, oils, etc. for the first month Please see attached forms for additional instructions regarding post Open Heart specialty wound vacuum dressings. JOSE or Prevena , Dressing to be removed by Nursing staff on _09/28/[address] Castelan patients , please obtain CBC, BMP, PA & Lat CXR in 2 weeks, results to Dr. Castelan ( prescription will be given) ( ) (Tele: [phone]) , Valve replacement pts will need 2decho in 2 weeks with results to Dr. Castelan . Please obtain 2 d echo at your [facility] office if possible F/U appointment: as per CT instructions: PCP in 2 weeks, CV surgeon 2 weeks, [place] [place] [facility] 3-4 weeks For any questions regarding incisions/ dressing / meds / post op care or above Symptoms, Wednesday 8am-5pm Heart & Vascular Surgery Office ( Dr. Loera & Dr. Castelan), After Hours / Nights (5pm -8am) Weekends and Holidays Please call [facility] ([facility]) Charge Nurse I have seen patient Golden Morris Jr Sahil on 09/22/16. My clinical findings support the need for the requested home health care services because: Deconditioned w/ increased weakness I certify that my clinical findings support that this patient is homebound because: Post-op weakness Jailene Urena September 22, 2016 14:24
--- NOTE | 2016-09-22 14:28 | PD.CAR.PN ---
CVT Progress Note Subjective/Hospital Course: 09/20 Clinically stable Requesting Off-Pump CABG since his brother was operated [place] [facility]. Will plan for OPCAB tomorrow am. D/w Dr. Castelan Objective: Vital Signs Date Time Temp Pulse Resp B/P Pulse Ox O2 Delivery O2 Flow Rate FiO2 09/22/16 14:00 90 09/22/16 13:00 90 09/22/16 12:39 85 09/22/16 12:39 98.4 85 18 131/74 96 09/22/16 12:39 96 Nasal Cannula 1.00 09/22/16 12:00 85 09/22/16 11:00 93 Nasal Cannula 1.00 09/22/16 11:00 99.7 83 18 113/67 93 Arterial Line 09/22/16 11:00 83 09/22/16 07:15 74 09/22/16 07:15 98 Nasal Cannula 1.00 09/22/16 07:00 81 09/22/16 07:00 98.4 81 16 115/69 94 116/59 09/22/16 07:00 94 Nasal Cannula 1.00 09/22/16 03:00 99 Simple Mask 8.00 09/22/16 03:00 82 09/22/16 03:00 98.6 85 16 132/79 99 137/61 09/21/16 23:00 83 09/21/16 23:00 95 Simple Mask 8.00 09/21/16 23:00 98.2 71 16 133/77 97 138/62 09/21/16 22:55 95 Simple Mask 8.00 09/21/16 19:15 98 Nasal Cannula 2.00 09/21/16 19:15 97.8 87 20 122/70 99 128/68 09/21/16 19:00 92 09/21/16 15:00 97 Nasal Cannula 5.00 09/21/16 15:00 80 09/21/16 15:00 97.8 80 16 129/81 94 128/66 09/21/16 14:30 96 Nasal Cannula 5.00 Labs: Laboratory Tests Test 09/22/16 05:00 White Blood Count 10.9 TH/MM3 (4.0-11.0) Red Blood Count 2.92 MIL/MM3 (4.50-5.90) Hemoglobin 8.5 GM/DL (13.0-17.0) Hematocrit 25.4 % (39.0-51.0) Mean Corpuscular Volume 87.0 FL (80.0-100.0) Mean Corpuscular Hemoglobin 29.0 PG (27.0-34.0) Mean Corpuscular Hemoglobin 33.4 % Concent (32.0-36.0) Red Cell Distribution Width 15.2 % (11.6-17.2) Platelet Count 162 TH/MM3 (150-450) Mean Platelet Volume 9.0 FL (7.0-11.0) Sodium Level 139 MEQ/L (136-145) Potassium Level 3.8 MEQ/L (3.5-5.1) Chloride Level 108 MEQ/L (98-107) Carbon Dioxide Level 24.3 MEQ/L (21.0-32.0) Anion Gap 7 MEQ/L (5-15) Blood Urea Nitrogen 16 MG/DL (7-18) Creatinine 1.15 MG/DL (0.60-1.30) Estimat Glomerular Filtration 63 ML/MIN (>89) Rate Random Glucose 105 MG/DL (74-106) Calcium Level 8.2 MG/DL (8.5-10.1) Magnesium Level 2.3 MG/DL (1.5-2.5) Result Diagram: 09/22/16 0500 09/22/16 0500 (1) CAD (coronary artery disease) (2) S/P CABG x 4 Plan: on ASA, statin , plavix amiodarone and pulm toileting nebs ezpap acapella wean o2 gentle diuresis chest tube to wall suction (3) Tobacco abuse Plan: smoking cessation (4) HTN (hypertension) Plan: stable (5) DM (diabetes mellitus) Plan: diabetic diet, hgb aic 6.3 Jailene Urena September 22, 2016 14:28
[2016-09-22] MEDS: RESP: ALBUTEROL 2.5 MG/IPRATROPIUM 0.5 MG NEB (SCH) NEB (19:21)
[2016-09-22] MEDS: SENNOSIDES 8.6 MG TAB PO SCH (21:32)
[2016-09-23] VITALS (32 sets, daily range): BP systolic 116–144; BP diastolic 78–90; PULSE 67–107; RESP 16–20; TEMP 98.3–99.2; O2SAT 90–96
[2016-09-23] MEDS: INSULIN ASPART SUPPLEMENTAL SCALE SQ SCH ×6 (02:00→19:50)
[2016-09-23] MEDS: oxyCODONE/ACETAMINOPHEN 5 MG/325 MG TAB PO PRN ×6 (02:18→23:33)
[2016-09-23] MEDS: ceFAZolin 2 GM PREMIX 50 ML IV SCH (02:19)
[2016-09-23] MEDS: PANTOPRAZOLE SOD 40 MG DELAYED RELEASE TAB PO SCH (06:16)
[2016-09-23 06:24] LABS: AUTOMATED NEUTROPHIL # 8.6 TH/MM3 (1.8-7.7); BASOPHIL % 0.3 % (0.0-2.0); EOSINOPHIL # 0.1 TH/MM3 (0-0.4); EOSINOPHIL % 1.1 % (0.0-4.0); HEMATOCRIT 23.5 % (39.0-51.0); HEMO FLAGS DIFF FINAL; LYMPH % 10.4 % (9.0-44.0); LYMPHOCYTE # 1.1 TH/MM3 (1.0-4.8); MEAN CELL VOLUME 87.7 FL (80.0-100.0); MEAN CORPUSCULAR HEMOGLOBIN 28.7 PG (27.0-34.0); MEAN CORPUSCULAR HGB CONC 32.7 % (32.0-36.0); MONO % 9.7 % (0.0-8.0); NEUT % 78.5 % (16.0-70.0); PLATELET COUNT 139 TH/MM3 (150-450); RED BLOOD COUNT 2.68 MIL/MM3 (4.50-5.90); RED CELL DISTRIBUTION WIDTH 15.2 % (11.6-17.2)
[2016-09-23 06:55] LABS: BICARBONATE 27.2 MEQ/L (21.0-32.0); MAGNESIUM 2.3 MG/DL (1.5-2.5); POTASSIUM 4.1 MEQ/L (3.5-5.1)
[2016-09-23] MEDS: RESP: ALBUTEROL 2.5 MG/IPRATROPIUM 0.5 MG NEB (SCH) NEB ×3 (08:39→18:56)
[2016-09-23] MEDS: SODIUM CHLORIDE 0.9% FLUSH 10 ML FLUSH IV FLUSH SCH ×2 (09:00→19:52)
[2016-09-23] MEDS: MAGNESIUM HYDROXIDE SUSP 30 ML CUP PO SCH (09:31)
[2016-09-23] MEDS: ATORVASTATIN 40 MG TAB PO SCH (09:31)
[2016-09-23] MEDS: POLYETHYLENE GLYCOL 17 GM PKG PO SCH (09:31)
[2016-09-23] MEDS: MULTIVITAMINS/MINERALS THERAPEUTIC TAB PO SCH (09:32)
[2016-09-23] MEDS: ASPIRIN 81 MG CHEW TAB PO SCH (09:32)
[2016-09-23] MEDS: CLOPIDOGREL 75 MG TAB PO SCH (09:32)
[2016-09-23] MEDS: AMIODARONE 200 MG TAB PO SCH ×2 (09:32→19:44)
[2016-09-23] MEDS: METOPROLOL TARTRATE 25 MG TAB PO SCH ×2 (09:32→19:44)
[2016-09-23] MEDS: TAMSULOSIN HCL 0.4 MG CAP PO SCH (09:33)
[2016-09-23] MEDS: DOCUSATE SODIUM 100 MG CAP PO SCH ×2 (09:33→19:43)
[2016-09-23] MEDS: PROSCAR PO SCH (09:33)
--- NOTE | 2016-09-23 17:13 | PD.CARD.PN ---
Subjective Subjective Remarks alert in nad Objective Vital Signs / I&O Vital Signs Date Time Temp Pulse Resp B/P Pulse Ox O2 Delivery O2 Flow Rate FiO2 09/23/16 16:27 95 Nasal Cannula 2.00 09/23/16 15:50 98.8 90 20 141/81 92 09/23/16 12:29 92 Room Air 09/23/16 12:00 94 09/23/16 11:30 99.2 86 19 132/78 92 09/23/16 11:00 82 09/23/16 10:00 98 09/23/16 09:00 92 09/23/16 08:47 92 21 09/23/16 08:00 82 09/23/16 07:45 98.3 85 18 137/80 94 09/23/16 07:00 94 Room Air 09/23/16 07:00 76 09/23/16 06:00 84 09/23/16 05:08 74 09/23/16 04:00 76 09/23/16 03:15 98.8 87 16 116/80 95 09/23/16 03:15 95 Nasal Cannula 2.00 09/23/16 03:00 87 09/23/16 02:27 107 09/23/16 01:03 82 09/23/16 00:06 88 09/22/16 23:20 94 Nasal Cannula 2.00 09/22/16 23:20 98.8 89 16 117/74 94 09/22/16 23:00 89 09/22/16 22:00 102 09/22/16 21:00 110 09/22/16 20:00 116 09/22/16 19:40 99.2 116 18 138/82 86 09/22/16 19:40 91 Nasal Cannula 2.00 09/22/16 19:40 91 Nasal Cannula 2.00 09/22/16 19:38 86 Room Air 09/22/16 19:23 92 21 09/22/16 19:00 119 09/22/16 18:00 99 I/O 09/22/16 09/22/16 09/22/16 09/23/16 09/23/16 09/23/16 07:00 15:00 23:00 07:00 15:00 23:00 Intake Total 2350 ml 1410 ml 290 ml 720 ml Output Total 985 ml 580 ml 470 ml 645 ml Balance 1365 ml 830 ml -180 ml 75 ml Intake Oral 1200 ml 1410 ml 240 ml 720 ml IV Total 1150 ml 50 ml Output Urine Total 615 ml 300 ml 400 ml 525 ml Chest Tube Drainage Total 370 ml 280 ml 70 ml 120 ml # Bowel Movements 0 0 0 Physical Exam GENERAL: SKIN: Warm and dry. HEAD: Normocephalic. EYES: No scleral icterus. No injection or drainage. NECK: Supple, trachea midline. No JVD or lymphadenopathy. CARDIOVASCULAR: Regular rate and rhythm without murmurs, gallops, or rubs. RESPIRATORY: Breath sounds equal bilaterally. No accessory muscle use. GASTROINTESTINAL: Abdomen soft, non-tender, nondistended. MUSCULOSKELETAL: No cyanosis, or edema. BACK: Nontender without obvious deformity. No CVA tenderness. Laboratory Laboratory Tests Test 09/23/16 05:20 White Blood Count 11.0 TH/MM3 Red Blood Count 2.68 MIL/MM3 Hemoglobin 7.7 GM/DL Hematocrit 23.5 % Mean Corpuscular Volume 87.7 FL Mean Corpuscular Hemoglobin 28.7 PG Mean Corpuscular Hemoglobin 32.7 % Concent Red Cell Distribution Width 15.2 % Platelet Count 139 TH/MM3 Mean Platelet Volume 9.0 FL Neutrophils (%) (Auto) 78.5 % Lymphocytes (%) (Auto) 10.4 % Monocytes (%) (Auto) 9.7 % Eosinophils (%) (Auto) 1.1 % Basophils (%) (Auto) 0.3 % Neutrophils # (Auto) 8.6 TH/MM3 Lymphocytes # (Auto) 1.1 TH/MM3 Monocytes # (Auto) 1.1 TH/MM3 Eosinophils # (Auto) 0.1 TH/MM3 Basophils # (Auto) 0.0 TH/MM3 CBC Comment DIFF FINAL Differential Comment Sodium Level 140 MEQ/L Potassium Level 4.1 MEQ/L Chloride Level 107 MEQ/L Carbon Dioxide Level 27.2 MEQ/L Anion Gap 6 MEQ/L Blood Urea Nitrogen 16 MG/DL Creatinine 1.15 MG/DL Estimat Glomerular Filtration 63 ML/MIN Rate Random Glucose 105 MG/DL Calcium Level 8.2 MG/DL Magnesium Level 2.3 MG/DL Assessment and Plan Problem List: (1) CAD (coronary artery disease) (2) S/P CABG x 4 (3) Tobacco abuse (4) HTN (hypertension) (5) DM (diabetes mellitus) Assessment and Plan 1.) severe 3 vessel cad/dm - pod #[address] Loera 09/21/16, clinically stable on metoprolol, lipitor Rubén Galloway MD September 23, 2016 17:13
[2016-09-23] MEDS: SENNOSIDES 8.6 MG TAB PO SCH (19:44)
[2016-09-24] VITALS (27 sets, daily range): BP systolic 132–151; BP diastolic 75–90; PULSE 70–94; RESP 17–20; TEMP 97.7–99.2; O2SAT 93–96
[2016-09-24] MEDS: oxyCODONE/ACETAMINOPHEN 5 MG/325 MG TAB PO PRN ×5 (03:31→21:12)
[2016-09-24] MEDS: PANTOPRAZOLE SOD 40 MG DELAYED RELEASE TAB PO SCH (06:33)
[2016-09-24] MEDS: INSULIN ASPART SUPPLEMENTAL SCALE SQ SCH ×4 (06:33→21:00)
[2016-09-24] MEDS: RESP: ALBUTEROL 2.5 MG/IPRATROPIUM 0.5 MG NEB (SCH) NEB (08:08)
[2016-09-24] MEDS: AMIODARONE 200 MG TAB PO SCH ×2 (08:48→21:12)
[2016-09-24] MEDS: PROSCAR PO SCH (08:48)
[2016-09-24] MEDS: TAMSULOSIN HCL 0.4 MG CAP PO SCH (08:48)
[2016-09-24] MEDS: METOPROLOL TARTRATE 25 MG TAB PO SCH ×2 (08:49→21:12)
[2016-09-24] MEDS: ATORVASTATIN 40 MG TAB PO SCH (08:49)
[2016-09-24] MEDS: ASPIRIN 81 MG CHEW TAB PO SCH (08:49)
[2016-09-24] MEDS: MULTIVITAMINS/MINERALS THERAPEUTIC TAB PO SCH (08:49)
[2016-09-24] MEDS: CLOPIDOGREL 75 MG TAB PO SCH (08:49)
[2016-09-24] MEDS: DOCUSATE SODIUM 100 MG CAP PO SCH ×2 (08:49→21:12)
[2016-09-24] MEDS: MAGNESIUM HYDROXIDE SUSP 30 ML CUP PO SCH (08:50)
[2016-09-24] MEDS: POLYETHYLENE GLYCOL 17 GM PKG PO SCH (08:50)
[2016-09-24] MEDS: SODIUM CHLORIDE 0.9% FLUSH 10 ML FLUSH IV FLUSH SCH ×2 (08:50→21:12)
--- NOTE | 2016-09-24 12:25 | PD.CARD.PN ---
Subjective Subjective Remarks alert in nad Objective Vital Signs / I&O Vital Signs Date Time Temp Pulse Resp B/P Pulse Ox O2 Delivery O2 Flow Rate FiO2 09/24/16 11:42 99.2 76 17 132/87 95 09/24/16 08:08 93 21 09/24/16 07:00 97.7 73 19 141/82 95 09/24/16 05:00 78 09/24/16 04:32 16 09/24/16 04:00 78 09/24/16 03:33 98.8 80 20 147/75 96 09/24/16 03:30 96 Nasal Cannula 2.00 09/24/16 03:00 85 09/24/16 02:00 80 09/24/16 01:00 86 09/24/16 00:00 82 09/23/16 23:20 98.8 84 20 131/88 94 09/23/16 23:20 96 Nasal Cannula 2.00 09/23/16 23:00 85 09/23/16 22:00 88 09/23/16 21:00 86 09/23/16 20:00 102 09/23/16 19:15 96 Nasal Cannula 2.00 09/23/16 19:15 98.7 103 20 124/79 96 09/23/16 19:00 101 09/23/16 18:56 90 21 09/23/16 18:00 102 09/23/16 17:00 98 09/23/16 16:27 95 Nasal Cannula 2.00 09/23/16 16:00 100 09/23/16 15:50 98.8 90 20 141/81 92 09/23/16 15:00 96 09/23/16 14:00 90 09/23/16 13:00 90 09/23/16 12:29 92 Room Air I/O 09/23/16 09/23/16 09/23/16 09/24/16 09/24/16 09/24/16 07:00 15:00 23:00 07:00 15:00 23:00 Intake Total 290 ml 720 ml 480 ml Output Total 470 ml 645 ml 400 ml Balance -180 ml 75 ml 80 ml Intake Oral 240 ml 720 ml 480 ml IV Total 50 ml Output Urine Total 400 ml 525 ml 400 ml Chest Tube Drainage Total 70 ml 120 ml # Voids 4 # Bowel Movements 0 0 Physical Exam GENERAL: SKIN: Warm and dry. HEAD: Normocephalic. EYES: No scleral icterus. No injection or drainage. NECK: Supple, trachea midline. No JVD or lymphadenopathy. CARDIOVASCULAR: Regular rate and rhythm without murmurs, gallops, or rubs. RESPIRATORY: Breath sounds equal bilaterally. No accessory muscle use. GASTROINTESTINAL: Abdomen soft, non-tender, nondistended. MUSCULOSKELETAL: No cyanosis, or edema. BACK: Nontender without obvious deformity. No CVA tenderness. Assessment and Plan Problem List: (1) CAD (coronary artery disease) (2) S/P CABG x 4 (3) Tobacco abuse (4) HTN (hypertension) (5) DM (diabetes mellitus) Assessment and Plan 1.) severe 3 vessel cad/dm - pod #[address] Loera 09/21/16, clinically stable on metoprolol, lipitor Rubén Galloway MD September 24, 2016 12:25
--- NOTE | 2016-09-24 13:31 | PD.CAR.PN ---
CVT Progress Note Subjective/Hospital Course: 09/20 Clinically stable Requesting Off-Pump CABG since his [place] was [place] [facility]. Will plan for [facility] tomorrow am. D/w Dr. Castelan 09/22 SURGICAL PROCEDURE 1. Urgent Off-pump Coronary Artery Bypass Grafting x 4 with left internal mammary artery (ACOSTA) to left anterior descending (LAD), reverse saphenous vein graft to the OM1, reverse saphenous vein graft to the RCA, reverse saphenous vein graft to the Diagonal 1 2.Right Leg Endoscopic Vein [place] 3. Intraoperative Vein Mapping. 09/23 Transfer telemetry Ambulate 09/24 D/C CT Discharge home in am Objective: Vital Signs Date Time Temp Pulse Resp B/P Pulse Ox O2 Delivery O2 Flow Rate FiO2 09/24/16 11:42 99.2 76 17 132/87 95 09/24/16 08:08 93 21 09/24/16 07:00 97.7 73 19 141/82 95 09/24/16 05:00 78 09/24/16 04:32 16 09/24/16 04:00 78 09/24/16 03:33 98.8 80 20 147/75 96 09/24/16 03:30 96 Nasal Cannula 2.00 09/24/16 03:00 85 09/24/16 02:00 80 09/24/16 01:00 86 09/24/16 00:00 82 09/23/16 23:20 98.8 84 20 131/88 94 09/23/16 23:20 96 Nasal Cannula 2.00 09/23/16 23:00 85 09/23/16 22:00 88 09/23/16 21:00 86 09/23/16 20:00 102 09/23/16 19:15 96 Nasal Cannula 2.00 09/23/16 19:15 98.7 103 20 124/79 96 09/23/16 19:00 101 09/23/16 18:56 90 21 09/23/16 18:00 102 09/23/16 17:00 98 09/23/16 16:27 95 Nasal Cannula 2.00 09/23/16 16:00 100 09/23/16 15:50 98.8 90 20 141/81 92 09/23/16 15:00 96 09/23/16 14:00 90 Result Diagram: 09/23/16 0509/23/16 0520 (1) CAD (coronary artery disease) (2) S/P CABG x 4 Plan: on ASA, statin , plavix amiodarone and pulm toileting nebs ezpap acapella wean o2 gentle diuresis chest tube to wall suction (3) Tobacco abuse Plan: smoking cessation (4) HTN (hypertension) Plan: stable (5) DM (diabetes mellitus) Plan: diabetic diet, hgb aic 6.3 Kaley Loera MD September 24, 2016 13:30
[2016-09-24] MEDS: SENNOSIDES 8.6 MG TAB PO SCH (21:12)
[2016-09-25] VITALS (15 sets, daily range): BP systolic 132–157; BP diastolic 73–89; PULSE 71–85; RESP 18–20; TEMP 98.4–98.8; O2SAT 93–96
[2016-09-25] MEDS: oxyCODONE/ACETAMINOPHEN 5 MG/325 MG TAB PO PRN ×3 (01:10→10:10)
[2016-09-25] MEDS: PANTOPRAZOLE SOD 40 MG DELAYED RELEASE TAB PO SCH (06:16)
[2016-09-25] MEDS: INSULIN ASPART SUPPLEMENTAL SCALE SQ SCH ×2 (06:34→11:46)
[2016-09-25] MEDS: POLYETHYLENE GLYCOL 17 GM PKG PO SCH (09:00)
[2016-09-25] MEDS ORDERED: FUROSEMIDE 40 MG TAB PO SCH (09:00)
[2016-09-25] MEDS ORDERED: FERROUS SULFATE 325 MG (65 MG ELEMENTAL IRON) TAB PO SCH (09:00)
[2016-09-25] MEDS ORDERED: POTASSIUM CHLORIDE 20 MEQ CONTROLLED RELEASE TAB PO SCH (09:00)
[2016-09-25] MEDS: MAGNESIUM HYDROXIDE SUSP 30 ML CUP PO SCH (09:00)
[2016-09-25] MEDS: TAMSULOSIN HCL 0.4 MG CAP PO SCH (09:21)
[2016-09-25] MEDS: AMIODARONE 200 MG TAB PO SCH (09:21)
[2016-09-25] MEDS: CLOPIDOGREL 75 MG TAB PO SCH (09:22)
[2016-09-25] MEDS: ASPIRIN 81 MG CHEW TAB PO SCH (09:22)
[2016-09-25] MEDS: ATORVASTATIN 40 MG TAB PO SCH (09:22)
[2016-09-25] MEDS: METOPROLOL TARTRATE 25 MG TAB PO SCH (09:22)
[2016-09-25] MEDS: PROSCAR PO SCH (09:22)
[2016-09-25] MEDS: DOCUSATE SODIUM 100 MG CAP PO SCH (09:22)
[2016-09-25] MEDS: MULTIVITAMINS/MINERALS THERAPEUTIC TAB PO SCH (09:22)
[2016-09-25] MEDS: SODIUM CHLORIDE 0.9% FLUSH 10 ML FLUSH IV FLUSH SCH (09:23)
--- NOTE | 2016-09-25 10:10 | PD.CARD.PN ---
Subjective Subjective Remarks alert in nad Objective Vital Signs / I&O Vital Signs Date Time Temp Pulse Resp B/P Pulse Ox O2 Delivery O2 Flow Rate FiO2 09/25/16 10:00 85 09/25/16 09:00 85 09/25/16 08:00 76 09/25/16 07:42 93 21 09/25/16 07:00 95 Room Air 09/25/16 07:00 98.8 76 18 157/89 95 09/25/16 07:00 78 09/25/16 06:00 75 09/25/16 05:00 76 09/25/16 04:00 98.4 73 20 132/85 94 09/25/16 04:00 94 Room Air 09/25/16 04:00 73 09/25/16 03:00 74 09/25/16 02:22 18 09/25/16 02:00 71 09/25/16 01:00 76 09/25/16 00:00 98.7 77 20 134/73 94 09/25/16 00:00 76 09/25/16 00:00 94 Room Air 09/24/16 23:00 82 09/24/16 22:00 88 09/24/16 21:00 88 09/24/16 20:00 94 Room Air 09/24/16 20:00 86 09/24/16 20:00 98.8 88 20 151/90 94 09/24/16 19:47 21 09/24/16 19:00 89 09/24/16 18:05 80 09/24/16 17:22 78 09/24/16 16:13 95 Room Air 09/24/16 16:00 80 09/24/16 15:30 98.1 80 19 140/86 95 09/24/16 15:00 79 09/24/16 14:00 76 09/24/16 13:00 74 09/24/16 12:00 80 09/24/16 11:42 99.2 76 17 132/87 95 09/24/16 11:00 80 09/24/16 11:00 94 Room Air I/O 09/24/16 09/24/16 09/24/16 09/25/16 09/25/16 09/25/16 07:00 15:00 23:00 07:00 15:00 23:00 Intake Total 480 ml 720 ml 480 ml Output Total 400 ml 600 ml 150 ml Balance 80 ml 120 ml 330 ml Intake Oral 480 ml 720 ml 480 ml Output Urine Total 400 ml 600 ml 150 ml # Voids 4 # Bowel Movements 1 1 Physical Exam GENERAL: SKIN: Warm and dry. HEAD: Normocephalic. EYES: No scleral icterus. No injection or drainage. NECK: Supple, trachea midline. No JVD or lymphadenopathy. CARDIOVASCULAR: Regular rate and rhythm without murmurs, gallops, or rubs. RESPIRATORY: Breath sounds equal bilaterally. No accessory muscle use. GASTROINTESTINAL: Abdomen soft, non-tender, nondistended. MUSCULOSKELETAL: No cyanosis, or edema. BACK: Nontender without obvious deformity. No CVA tenderness. Assessment and Plan Problem List: (1) CAD (coronary artery disease) (2) S/P CABG x 4 (3) Tobacco abuse (4) HTN (hypertension) (5) DM (diabetes mellitus) Assessment and Plan 1.) severe 3 vessel cad/dm - pod #[address] Loera 09/21/16, clinically stable on metoprolol, lipitor; advised patient to f/u with me in office kenn after Rubén Sanchez MD September 25, 2016 10:10
[2016-09-25] MEDS ORDERED: FURO40TA PO (13:35)
[2016-09-25] MEDS ORDERED: TAMS5CAP PO (13:35)
[2016-09-25] MEDS ORDERED: POTA20TA5 PO (13:35)
[2016-09-25] MEDS ORDERED: AMIO200T PO (13:35)
[2016-09-25] MEDS ORDERED: FERR325T PO (13:35)
[2016-09-25] MEDS ORDERED: Aspirin Chew PO (13:35)
--- NOTE | 2016-09-25 13:38 | HHI.DS ---
Discharge Summary Admission Date Sep 18, 2016 at 11:06 Discharge Date: September 25, 2016 Admitting Diagnosis Brief History Admitted with CP and NSTEMI CBC/BMP: 09/23/16 0520 09/23/16 0520 Significant Findings Laboratory Tests Test 09/23/16 05:20 Red Blood Count 2.68 MIL/MM3 (4.50-5.90) Hemoglobin 7.7 GM/DL (13.0-17.0) Hematocrit 23.5 % (39.0-51.0) Platelet Count 139 TH/MM3 (150-450) Neutrophils (%) (Auto) 78.5 % (16.0-70.0) Monocytes (%) (Auto) 9.7 % (0.0-8.0) Neutrophils # (Auto) 8.6 TH/MM3 (1.8-7.7) Monocytes # (Auto) 1.1 TH/MM3 (0-0.9) Estimat Glomerular Filtration 63 ML/MIN (>89) Rate Calcium Level 8.2 MG/DL (8.5-10.1) Hospital Course 09/20 Clinically stable Requesting Off-Pump CABG since his brother was operated by de. Will plan for OPCAB tomorrow am. D/w Dr. Castelan 09/22 SURGICAL PROCEDURE 1. Urgent Off-pump Coronary Artery Bypass Grafting x 4 with left internal mammary artery (ACOSTA) to left anterior descending (LAD), reverse saphenous vein graft to the OM1, reverse saphenous vein graft to the RCA, reverse saphenous vein graft to the Diagonal 1 2.Right Leg Endoscopic Vein [place] 3. Intraoperative Vein Mapping. 09/23 Transfer telemetry Ambulate 09/24 D/C CT Discharge home in am 09/25 D/C Home Discharge Disposition: Disch w/ Home Health Serv Discharge Instructions DIET: Follow Instructions for: Heart Healthy Diet Activities you can perform: Full Weight Bearing, Shower Only-No Bath Activities to avoid: Lifting/Bending, Strenuous Activity, Driving, Sexual Activity New Medications: Amiodarone (Amiodarone) 200 Mg Tab 400 MG PO Q12HR z Days 14 TAB Ferrous Sulfate (Ferrous Sulfate) 325 Mg Tab 325 MG PO BID z Days 28 TAB Furosemide (Furosemide) 40 Mg Tab 40 MG PO BID@09,18 z Days 10 TAB Potassium Chloride Microencaps (Potassium Chloride Microencaps) 20 Meq Tab 20 MEQ PO Q12HR z Days 10 TAB Tamsulosin (Flomax) 0.4 Mg Cap 0.4 MG PO DAILY z Days 30 CAP ([Aspirin Chew]) 81 MG CHEW 81 MG PO DAILY z Days 90 TAB.CHEW Continued Medications: Alfuzosin ER 24 HR (Uroxatral ER 24 HR) 10 Mg Tab 10 MG PO DAILY BPH #30 Ref 0 TAB Aspirin (Aspirin) 81 Mg Chew 81 MG CHEW DAILY Ref 0 TAB Atenolol (Atenolol) 50 Mg Tab 50 MG PO DAILY Blood Pressure Management #30 Ref 0 TAB Clopidogrel (Plavix) 75 Mg Tab 75 MG PO DAILY Blood Clot Prevention #30 Ref 0 TAB Dutasteride (Avodart) 0.5 Mg Cap 0.5 MG PO DAILY Manage Prostate Problems #30 Ref 0 CAP Felodipine ER (Felodipine ER) 10 mg Gracie 10 MG PO DAILY Blood Pressure Management #30 Ref 0 TAB Lutein (Lutein) 6 Mg Cap 6 MG PO DAILY Nutritional Supplement Ref 0 CAP Omeprazole (Omeprazole) 20 Mg Tab 20 MG PO DAILY #30 Ref 0 TAB Rosuvastatin (Crestor) 20 Mg Tab 20 MG PO DAILY Cholesterol Management #30 Ref 0 TAB Discontinued Medications: Lisinopril-Hctz (Lisinopril-Hctz) 10-12.5 Mg Tab 1 TAB PO DAILY Blood Pressure Management #30 Ref 0 TAB Kaley Loera MD September 25, 2016 13:38
--- NOTE | 2016-10-01 07:03 | PQ ---
Physician Query Response Document PATIENT: YOLANDA DIANE : 1945 ADMIT DATE: 09/18/2016 11:06 AM DISCH DATE: 09/25/2016 2:46 PM RESPONDING PROVIDER #: [email or web address] QUERY TEXT: Clarification of Clinical Diagnostic Findings Please clarify documentation or clinical relevance for the clinical / diagnostic findings or whether those are insignificant or unable to be further specified. WAS ACUTE MYOCARDIAL INFARCTION : 1) Hx ND >4 weeks 2)Hx ND <4 weeks 3)acute NSTEMI 4) acute STEMI 5)Acute ND rulled out 6)other(PLEASE SPECIFY) If you have any additional questions/comments and/or concerns please call Coding/cdi [email or web address] The patient's Clinical Indicators include: Dr. PINEDA, op report docunents ACUTE MYOCARDIAL INFARCTION. No troponins were drawn on this admissio n. Please review the question below and answer to the best of your ability THANK YOU Query created by: Konrad Arce on 09/28/2016 7:49 AM RESPONSE TEXT: Acute NSTEMI <4 weeks. Electronically signed by: Kaley Pineda MD 10/01/2016 6:59 AM
== END 2016-09-25 14:46 | disposition home health service (06) | DRG 233 ==
LOC: HDOC 07:15 → HDIC 07:16 → HDOC 11:05 → HCIN 11:06 → HCVR 09-21 → HCIN 09-22 12:24
PROVIDERS: ADMIT Thoracic Surgery (Cardiothoracic Vascular Surgery); ATTEND Thoracic Surgery (Cardiothoracic Vascular Surgery)
PROC: B2111ZZ Fluoroscopy of Multiple Coronary Arteries using Low Osmolar Contrast (ICD-10-PCS; 2016-09-18)
PROC: B2151ZZ Fluoroscopy of Left Heart using Low Osmolar Contrast (ICD-10-PCS; 2016-09-18)
PROC: 4A023N8 Measurement of Cardiac Sampling and Pressure, Bilateral, Percutaneous Approach (ICD-10-PCS; principal; 2016-09-18 09:45)
PROC: 021209W Bypass Coronary Artery, Three Arteries from Aorta with Autologous Venous Tissue, Open Approach (ICD-10-PCS; 2016-09-21)
PROC: 06BP4ZZ Excision of Right Saphenous Vein, Percutaneous Endoscopic Approach (ICD-10-PCS; 2016-09-21)
PROC: 02100Z9 Bypass Coronary Artery, One Artery from Left Internal Mammary, Open Approach (ICD-10-PCS; 2016-09-21 07:40)
DX: I25.10 Atherosclerotic heart disease of native coronary artery without angina pectoris (principal); I21.4 Non-ST elevation (NSTEMI) myocardial infarction; I50.9 Heart failure, unspecified; I25.110 Atherosclerotic heart disease of native coronary artery with unstable angina pectoris; E11.9 Type 2 diabetes mellitus without complications; E78.2 Mixed hyperlipidemia; I73.9 Peripheral vascular disease, unspecified; E66.9 Obesity, unspecified; Z87.891 Personal history of nicotine dependence; I08.0 Rheumatic disorders of both mitral and aortic valves
CPT/HCPCS: 71010; 71020; 76937; 80048; 81001; 82810; 82948; 83036; 83735; 85014; 85025; 85027; 85576; 85610; 85730; 86850; 86900; 86901; 86920; 87641; 93005; 93453; 93880; 93970; 93998; 94002; 94010; 94150; 94640; 94664; 94667; 94668; C1768; C1769; C1893; C9248; J0131; J0690; J1644; J1815; J1885; J1940; J2250; J2370; J2440; J2720; J3010; J3370; J3475; J3480; P9045; Q9967